=== PATIENT | female | born 1985 | race Caucasian/White ===

== ENCOUNTER 2025-05-26 15:41 | Inpatient (IN) | payer MEDICAID, OTHER ==
[~2025-05-26] VITALS: Ht 165.1 cm; Wt 84.4 kg
[~2025-05-26 15:41] MED LIST: CITA-144 PO
[2025-05-26 16:08] LABS: PLATELET COUNT (AUTO) 373 K/uL (150-450); RED BLOOD CELL COUNT(AUTO) 4.49 MIL/uL (4.00-5.20); RED CELL DISTRIBUTION WIDTH 13.6 % (11.5-14.5); WHITE BLOOD COUNT (AUTO) 7.2 K/uL (4.5-11.0)
[2025-05-26 16:17] LABS: CALCIUM, TOTAL 9.3 mg/dL (8.8-10.5); CREATININE 0.68 mg/dL (0.60-1.30); GLOMERULAR FILTR. RATE CALC > 60 mL/min (>60); GLUCOSE,RANDOM 96 mg/dL (70-110); SODIUM SERUM 138 mmol/L (136-145); UREA NITROGEN, BLOOD 11 mg/dL (7-18)
[2025-05-26 16:27] VITALS: O2SAT 100
[2025-05-26 16:32] LABS: PH,URINE DRUG SCREEN 6.5 (5.0-8.0)
[2025-05-26 16:38] LABS: ALCOHOL, URINE DRUG SCREEN NEGATIVE (NEGATIVE); AMPHET/METH SCREEN,URINE NEGATIVE (NEGATIVE); BARBITURATE SCREEN, URINE NEGATIVE (NEGATIVE); CANNABINOID SCREEN,URINE POSITIVE (NEGATIVE); COCAINE SCREEN,URINE NEGATIVE (NEGATIVE); METHADONE SCREEN, URINE NEGATIVE (NEGATIVE)
[2025-05-26 16:47] LABS: APPEARANCE,URINE CLEAR (CLEAR); GLUCOSE, URINE (UA) NEGATIVE (NEGATIVE); LEUKOCYTE ESTERASE ,URINE SMALL (NEGATIVE); NITRATE,URINE NEGATIVE (NEGATIVE); OCCULT BLOOD,URINE NEGATIVE (NEGATIVE); SPECIFIC GRAVITIY, URINE 1.034 (1.003-1.030)
[2025-05-26] MEDS: IBUPROFEN 600 MG TABLET PO ONE (17:15)
[2025-05-26 17:34] LABS: SQUAMOUS EPITHELIAL CELL,UR Few /LPF (None Seen)
[2025-05-26 22:36] LABS: GLUCOMETER DEV NAME(LOC) POC.BV; POC SARS-COV2 AG, FIA NEGATIVE (NEGATIVE)
[2025-05-26] MEDS: ZOLPIDEM TARTRATE 10 MG TABLET PO PRN (23:20)
[2025-05-26 23:33] VITALS: BP 119/83; PULSE 87; RESP 18; TEMP 98; O2SAT 99
[2025-05-27] MEDS ORDERED: BACITRACIN 28 GM OINTMENT TP PRN
[2025-05-27] MEDS ORDERED: LOPERAMIDE HCL 2 MG CAPSULE PO PRN
[2025-05-27] MEDS ORDERED: ALBUTEROL SULFATE HFA 90 MCG/PUFF 8 GM INHALER IH PRN
[2025-05-27] MEDS ORDERED: PETROLATUM,WHITE 28 GM JELLY TP PRN
[2025-05-27] MEDS ORDERED: MAGNESIUM HYDROXIDE SUSPENSION 30 ML UDCUP PO PRN
[2025-05-27] MEDS ORDERED: OMEPRAZOLE 20 MG CAPSULE PO PRN
[2025-05-27] MEDS ORDERED: BENZOCAINE/MENTHOL [CEPACOL] LOZENGE PO PRN
[2025-05-27] MEDS ORDERED: DOCUSATE SODIUM 100 MG CAPSULE PO PRN
[2025-05-27 08:22] VITALS: BP 128/95; PULSE 98; RESP 16; TEMP 97.6; O2SAT 100
[2025-05-27 08:39] LABS: CHOL/HDL RATIO 2.0 (3.9-5.7); LDL CHOL (CALC.) 54.0 mg/dL (0-130)
[2025-05-27 13:50] VITALS: RESP 18
[2025-05-27] MEDS: IBUPROFEN 600 MG TABLET PO PRN (13:53)
[2025-05-27] MEDS: LORazepam 2 MG/ML VIAL IM ONE (14:12)
[2025-05-27 20:37] VITALS: RESP 17
[2025-05-28] MEDS ORDERED: LORazepam 2 MG/ML VIAL ONE (08:43)
[2025-05-28] MEDS: DIVALPROEX SODIUM 500 MG DR TABLET PO SCH (09:00)
[2025-05-28] MEDS: LITHIUM CARBONATE 300 MG CAPSULE PO SCH (09:00)
[2025-05-28] MEDS: LORazepam 2 MG/ML VIAL IM ONE (09:03)
[2025-05-28 09:40] VITALS: BP 131/96; PULSE 85; RESP 16; TEMP 98.2; O2SAT 100
[2025-05-28 20:10] VITALS: BP 128/89; PULSE 97; RESP 18; TEMP 97.2; O2SAT 100
[2025-05-28 20:18] VITALS: BP 118/86; PULSE 89; RESP 17; TEMP 97.2; O2SAT 98
[2025-05-29 05:00] VITALS: BP 121/80; PULSE 127; RESP 18; TEMP 98; O2SAT 99
[2025-05-29] MEDS: ACETAMINOPHEN 325 MG TABLET PO PRN (05:00)
[2025-05-29 06:20] VITALS: RESP 17
[2025-05-29 06:22] VITALS: RESP 17
[2025-05-29 08:35] VITALS: BP 108/93; PULSE 113; RESP 16; TEMP 97.3; O2SAT 98
[2025-05-29] MEDS: MULTIVITAMINS, THERAPEUTIC TABLET PO ONE (10:10)
[2025-05-29] MEDS ORDERED: LORazepam 2 MG/ML VIAL ONE (13:33)
[2025-05-29] MEDS: LORazepam 2 MG/ML VIAL IM ONE (13:56)
[2025-05-30] VITALS (7 sets, daily range): BP systolic 130–134; BP diastolic 104–108; PULSE 90–105; RESP 15–18; TEMP 98.6–98.7; O2SAT 99
[2025-05-30] MEDS ORDERED: ACETAMINOPHEN 500 MG TABLET PO PRN ×2 (13:30→18:00)
[2025-05-30] MEDS: AMOX TR/POT CLAV 875 MG/125 MG TABLET PO SCH (16:32)
[2025-05-30] MEDS ORDERED: AMOX TR/POT CLAV 875 MG/125 MG TABLET PO SCH (17:00)
[2025-05-31 08:51] VITALS: BP 114/76; PULSE 101; RESP 18; TEMP 97.5; O2SAT 96
[2025-05-31 09:30] LABS: VALPROIC ACID 31.0 mcg/mL (50-100)
[2025-05-31 14:04] VITALS: BP 118/83; PULSE 91; RESP 16; TEMP 98; O2SAT 97
[2025-06-01] MEDS: ONDANSETRON 4 MG TABLET PO PRN (06:42)
[2025-06-01 08:27] VITALS: BP 105/60; PULSE 101; RESP 18; TEMP 97.9; O2SAT 95
[2025-06-01] MEDS: LITHIUM CARBONATE 600 MG CAPSULE PO SCH (16:37)
[2025-06-02] MEDS: MAG HYDROX/ALUMINUM HYD/SIMETH ES 30 ML SUSPENSION UDCUP PO PRN (02:11)
[2025-06-02] MEDS: MULTIVITAMINS WITH MINERALS, THERAPEUTIC TABLET PO SCH (08:54)
[2025-06-02 10:58] VITALS: BP 117/83; PULSE 87; RESP 18; TEMP 97.9; O2SAT 99
[2025-06-02 20:18] VITALS: BP 124/80; PULSE 80; RESP 18; TEMP 97.6; O2SAT 99
[2025-06-03] MEDS ORDERED: LITH600C5 PO (08:00)
[2025-06-03 08:25] VITALS: BP 132/91; PULSE 100; RESP 17; TEMP 98.1; O2SAT 99
[2025-06-03] MEDS ORDERED: AMOX-457 PO (09:14)
[2025-06-03] MEDS ORDERED: DIVA-112 PO (09:49)
== END 2025-06-03 10:32 | disposition home or self-care (01) | DRG 753 ==
LOC: EMS 15:41 → B3A 18:53 → B2S 05-30 18:54
PROVIDERS: ADMIT Psychiatry & Neurology Psychiatry; ATTEND Psychiatry & Neurology Psychiatry
DX: F31.9 Bipolar disorder, unspecified (principal); F15.90 Other stimulant use, unspecified, uncomplicated; F41.9 Anxiety disorder, unspecified; G47.00 Insomnia, unspecified; Z20.822 Contact with and (suspected) exposure to COVID-19; K59.00 Constipation, unspecified; Z79.899 Other long term (current) drug therapy; Z88.8 Allergy status to other drugs, medicaments and biological substances; Z91.199 Patient's noncompliance with other medical treatment and regimen due to unspecified reason
CPT/HCPCS: 80048; 80061; 80164; 80178; 80307; 81001; 83036; 84703; 85025; 99285; G0480; J1200; J1630; J2060; Q0162

== ENCOUNTER 2025-05-30 10:24 | Emergency (ER) | payer MEDICAID, OTHER ==
[~2025-05-30] VITALS: Ht 165.1 cm; Wt 77.3 kg
[2025-05-30 10:35] VITALS: BP 131/98; PULSE 88; RESP 18; TEMP 98; O2SAT 99
[2025-05-30] MEDS: AMOX TR/POT CLAV 875 MG/125 MG TABLET PO ONE (10:56)
[2025-05-30] MEDS: ACETAMINOPHEN 500 MG TABLET PO ONE (10:56)
[2025-05-30] MEDS: BACITRACIN 0.9 GM PACKET OINTMENT TP ONE (12:13)
== END 2025-05-30 12:16 ==
LOC: EMS 10:24
DX: S09.90XA Unspecified injury of head, initial encounter (principal); H66.91 Otitis media, unspecified, right ear; F31.9 Bipolar disorder, unspecified; F41.9 Anxiety disorder, unspecified; Z88.5 Allergy status to narcotic agent; X58.XXXA Exposure to other specified factors, initial encounter; Y93.89 Activity, other specified; Y92.89 Other specified places as the place of occurrence of the external cause; Y99.8 Other external cause status
CPT/HCPCS: 99283

== ENCOUNTER 2025-05-30 20:58 | Emergency (ER) | payer OTHER ==
[~2025-05-30] VITALS: Ht 165.1 cm; Wt 70.5 kg
[2025-05-30 21:59] VITALS: BP 130/100; PULSE 90; RESP 15; O2SAT 98
[2025-05-30] MEDS: IBUPROFEN 400 MG TABLET PO ONE (22:41)
== END 2025-05-30 23:45 ==
LOC: EMS 20:58
DX: S09.90XA Unspecified injury of head, initial encounter (principal); F31.9 Bipolar disorder, unspecified; F41.9 Anxiety disorder, unspecified; Z88.5 Allergy status to narcotic agent; Y04.0XXA Assault by unarmed brawl or fight, initial encounter; Y93.89 Activity, other specified; Y92.89 Other specified places as the place of occurrence of the external cause; Y99.8 Other external cause status
CPT/HCPCS: 99283

== ENCOUNTER 2025-06-08 01:19 | Emergency (ER) | payer MEDICAID, OTHER ==
[~2025-06-08 01:19] MED LIST changes: -CITA-144 PO; +LITH600C5 PO
== END 2025-06-08 02:05 | disposition left against medical advice (07) ==
LOC: EMS 01:19
DX: M54.2 Cervicalgia (principal); Z53.21 Procedure and treatment not carried out due to patient leaving prior to being seen by health care provider
CPT/HCPCS: 99281; Z7502

== ENCOUNTER 2025-06-12 01:40 | Emergency (ER) | payer OTHER ==
[~2025-06-12] VITALS: Ht 165.1 cm; Wt 84.1 kg
[2025-06-12 01:58] VITALS: TEMP 98.8
[2025-06-12 03:02] VITALS: BP 126/81; PULSE 86; RESP 16; O2SAT 99
[2025-06-12 03:06] LABS: PLATELET COUNT (AUTO) 364 K/uL (150-450); RED BLOOD CELL COUNT(AUTO) 3.97 MIL/uL (4.00-5.20); RED CELL DISTRIBUTION WIDTH 13.4 % (11.5-14.5); WHITE BLOOD COUNT (AUTO) 8.4 K/uL (4.5-11.0)
[2025-06-12 03:12] LABS: CALCIUM, TOTAL 8.8 mg/dL (8.8-10.5); CREATININE 0.52 mg/dL (0.60-1.30); GLOMERULAR FILTR. RATE CALC > 60 mL/min (>60); GLUCOSE,RANDOM 107 mg/dL (70-110); SODIUM SERUM 138 mmol/L (136-145); UREA NITROGEN, BLOOD 15 mg/dL (7-18)
[2025-06-12] MEDS: IBUPROFEN 600 MG TABLET PO ONE (03:39)
[2025-06-12 04:15] LABS: APPEARANCE,URINE HAZY (CLEAR); GLUCOSE, URINE (UA) NEGATIVE (NEGATIVE); LEUKOCYTE ESTERASE ,URINE LARGE (NEGATIVE); NITRATE,URINE NEGATIVE (NEGATIVE); OCCULT BLOOD,URINE SMALL (NEGATIVE); PH,URINE DRUG SCREEN 6.0 (5.0-8.0); SPECIFIC GRAVITIY, URINE 1.032 (1.003-1.030)
[2025-06-12 04:21] LABS: ALCOHOL, URINE DRUG SCREEN NEGATIVE (NEGATIVE); AMPHET/METH SCREEN,URINE NEGATIVE (NEGATIVE); BARBITURATE SCREEN, URINE NEGATIVE (NEGATIVE); CANNABINOID SCREEN,URINE POSITIVE (NEGATIVE); COCAINE SCREEN,URINE NEGATIVE (NEGATIVE); METHADONE SCREEN, URINE NEGATIVE (NEGATIVE)
[2025-06-12 04:23] LABS: SQUAMOUS EPITHELIAL CELL,UR Few /LPF (None Seen)
[2025-06-12] MEDS ORDERED: CEPH-558 PO (04:51)
== END 2025-06-12 07:06 | disposition home or self-care (01) ==
LOC: EMS 01:45
DX: F41.9 Anxiety disorder, unspecified (principal); N39.0 Urinary tract infection, site not specified; F31.9 Bipolar disorder, unspecified; Z79.899 Other long term (current) drug therapy; Z88.5 Allergy status to narcotic agent
CPT/HCPCS: 99285; 80048; 80178; 85025; 87086; 80307; 81001; G0480

== ENCOUNTER 2025-06-18 18:46 | Emergency (ER) | payer OTHER ==
[~2025-06-18] VITALS: Ht 166.4 cm; Wt 84.1 kg
[~2025-06-18 18:46] MED LIST changes: +CEPH-558 PO
[2025-06-18 18:59] VITALS: BP 123/79; PULSE 109; RESP 18; TEMP 97.9; O2SAT 99
[2025-06-19] MEDS: IBUPROFEN 600 MG TABLET PO ONE (00:22)
[2025-06-19] MEDS ORDERED: PERTUSS(ACELL),DIPH,TET/PF 0.5 ML SYRINGE [ADULT] IM. ONE (00:30)
== END 2025-06-19 00:43 | disposition home or self-care (01) ==
LOC: EMS 18:46
DX: S69.91XA Unspecified injury of right wrist, hand and finger(s), initial encounter (principal); F31.9 Bipolar disorder, unspecified; F41.9 Anxiety disorder, unspecified; Z88.5 Allergy status to narcotic agent; Z79.899 Other long term (current) drug therapy; X58.XXXA Exposure to other specified factors, initial encounter; Y93.89 Activity, other specified; Y92.89 Other specified places as the place of occurrence of the external cause; Y99.8 Other external cause status
CPT/HCPCS: 90715; 99283